=== PATIENT | male | born 1955 | race Caucasian/White ===

== ENCOUNTER 2023-06-28 14:40 | Inpatient (IN) | payer MEDICARE, BC ==
[~2023-06-28] VITALS: Ht 177.8 cm; Wt 98.3 kg
[~2023-06-28 14:40] MED LIST: ADDERALL30 MG PO; HYZAAR 50-12.1 UDTAB PO; PEPCID 20MG TAB20 MG PO; ZOCOR 20MG20 MG PO
[2023-07-18] MEDS ORDERED: Acetaminophen 500 MG TAB PO SCH (09:00)
[2023-07-18] MEDS ORDERED: Gabapentin 100 MG CAP PO SCH (09:00)
[2023-07-18] MEDS ORDERED: Celecoxib 200 MG CAP PO SCH (09:00)
[2023-07-19] VITALS (9 sets, daily range): BP systolic 126–156; BP diastolic 77–99; PULSE 65–93; TEMP 98–98.2
[2023-07-19] MEDS ORDERED: LR 1,000 ML IV SCH ×2 (09:15→15:15)
[2023-07-19] MEDS ORDERED: fentaNYL 50 MCG/ML 2 ML VIAL ONE (10:00)
[2023-07-19] MEDS ORDERED: Lidocaine PF 2% (20 MG/ML) 5 ML VIAL ONE (10:01)
[2023-07-19] MEDS ORDERED: Glycopyrrolate 0.2 MG/ML 1 ML VIAL ONE (10:02)
[2023-07-19] MEDS ORDERED: NS 10 ML IV ONE (10:02)
[2023-07-19] MEDS ORDERED: dexAMETHasone 10 MG/ML VIAL ONE (10:02)
[2023-07-19] MEDS ORDERED: Ondansetron 4 MG/2 ML VIAL ONE (10:02)
[2023-07-19] MEDS ORDERED: Rocuronium 50 MG/5 ML Multi-Dose VIAL ONE (11:18)
[2023-07-19] MEDS ORDERED: PRILOTC PO (11:31)
[2023-07-19] MEDS ORDERED: EFFEXOR XR75 MG/CAP PO (11:32)
[2023-07-19 11:34] LABS: HEMATOCRIT 44.2 % (42.0-52.0); MEAN CELL VOLUME 94 fl (80.0-100.0); MEAN CORPUSCULAR HEMOGLOBIN 32 pg (27-31); MEAN CORPUSCULAR HGB CONC 34 g/dl (33.0-37.0); MEAN PLATELET VOLUME 9.8 fl (7.4-10.4); PLATELET COUNT 194 K/mm3 (130-400); RED BLOOD COUNT 4.68 M/mm3 (4.20-5.60); REDCELL DISTRIBUTION WIDTH-CV 13.2 % (11.5-14.5)
[2023-07-19] MEDS ORDERED: NEOMYCIN S500 MG/TAB PO (11:34)
[2023-07-19] MEDS ORDERED: FLAGYL500 MG PO (11:34)
[2023-07-19] MEDS ORDERED: EFFEXOR-XR150 MG PO (11:35)
[2023-07-19 11:47] LABS: CALCIUM 9.2 mg/dL (8.4-10.2); CREATININE, serum 1.23 mg/dL (0.72-1.25); POTASSIUM 4.1 mmol/L (3.5-4.5)
[2023-07-19] MEDS ORDERED: Phenylephrine 10 MG/ML VIAL ONE (12:55)
[2023-07-19] MEDS ORDERED: Morphine 4 MG/ML VIAL IV PRN ×2 (13:00→15:15)
[2023-07-19] MEDS ORDERED: Meperidine 50 MG/ML 1 ML VIAL IV PRN (13:00)
[2023-07-19] MEDS ORDERED: Ondansetron 4 MG/2 ML VIAL IV PRN ×2 (13:00→15:15)
[2023-07-19] MEDS ORDERED: HYDROmorphone 2 MG/1 ML VIAL IV PRN (13:00)
[2023-07-19] MEDS ORDERED: Topical Skin Adhesive 1 EACH (1 ML) TOP ONE (14:01)
[2023-07-19] MEDS ORDERED: LR 1,000 ML IV ONE (14:25)
[2023-07-19] MEDS ORDERED: Naloxone 0.4 MG/ML VIAL IV PRN (15:15)
[2023-07-19] MEDS ORDERED: oxyCODONE 5 MG TAB PO PRN (15:15)
--- NOTE | 2023-07-19 17:10 | NUR ---
1036 Pt ambulatory to bay 2 with steady gait, breathing even and unlabored. Pt is alert and oriented, accompanied by his . Consents reviewed and signed by pt. IV established. LR infusing via gravity at KVO. Call light in reach. Warm blanket provided.
[2023-07-19] MEDS ORDERED: Acetaminophen 500 MG TAB PO SCH (18:00)
[2023-07-19] MEDS ORDERED: Ibuprofen 600 MG TAB PO SCH (19:01)
--- NOTE | 2023-07-19 19:15 | NUR ---
Assessment complete. A&Ox4. Denies nausea/shortness of breath. VS stable. Sitting up in recliner eating dinner. Left wrist INT with LR@75ml/HR infusing without difficulty. CUrrently on RA. Banks cath with clear yellow urine. Lap sites X5-edges well approximated-no drainage noted. Patient denies need for pain meds-states tylenol is controlling pain at this time. Plan of care discussed for this shift to include meds/pain control/fluids/calling for questions/concerns. Verbalizes understanding. Call light in reach. Will monitor.
--- NOTE | 2023-07-19 20:30 | NUR ---
Spoke with pharmacy due to warning box popping up when trying to administer celebrex that states not to give both NSAIDs consecutively. Pharmacy states clarification on order needed and may need to possibly order Motrin PRN. Held at this time as patient states he doesnt need at this time.
[2023-07-19] MEDS ORDERED: Celecoxib 200 MG CAP PO SCH (21:00)
[2023-07-20] VITALS (12 sets, daily range): BP systolic 118–160; BP diastolic 53–88; PULSE 79–100; TEMP 97.9–98.5
--- NOTE | 2023-07-20 05:22 | NUR ---
Patient has rested well over night. Tolerating PO. Adequate output. INTd this AM. Refused scheduled tylenol stating he is not in pain and does not want to take anything extra. Banks cath with clear yellow urine. SCDs off per patient request. Has ambulated. Has been up in room independently. Lap sites x5-edges well approximated-no drainage noted. VS stable-currently on RA. Denies current questions/concerns. Call light in reach. Will monitor.
--- NOTE | 2023-07-20 06:36 | NUR ---
Report given to TEJAS Iverson
[2023-07-20 07:08] LABS: BASO % 0.2 % (0.0-2.0); EOS % 0.2 % (0.0-4.0); GRAN # 10.8 K/mm3 (1.4-6.5); GRAN % 84.3 % (42.2-75.2); HEMATOCRIT 43.4 % (42.0-52.0); LYMPH # 1.1 K/mm3 (1.2-3.4); LYMPH % 8.6 % (20.0-51.0); MEAN CELL VOLUME 93 fl (80.0-100.0); MEAN CORPUSCULAR HEMOGLOBIN 32 pg (27-31); MEAN CORPUSCULAR HGB CONC 35 g/dl (33.0-37.0); MEAN PLATELET VOLUME 10.1 fl (7.4-10.4); MONO # 0.8 K/mm3 (0.1-0.6); MONO % 6.3 % (1.7-9.3); PLATELET COUNT 225 K/mm3 (130-400); RED BLOOD COUNT 4.69 M/mm3 (4.20-5.60); REDCELL DISTRIBUTION WIDTH-CV 13.1 % (11.5-14.5)
[2023-07-20 07:14] LABS: CALCIUM 9.6 mg/dL (8.4-10.2); CREATININE, serum 1.03 mg/dL (0.72-1.25); MAGNESIUM 2.3 mg/dL (1.6-2.6); PHOSPHOROUS 3.5 mg/dL (2.3-4.7); POTASSIUM 4.3 mmol/L (3.5-4.5)
--- NOTE | 2023-07-20 09:01 | NUR ---
PATIENT ALERT AND ORIENTED X4. VSS. PATIENT HERE FOR ROBOTIC RECTOPEXY. PATIENT DENIES ANY PAIN THIS MORNING, REFUSED ALL MORNING MEDS PATIENT STATES, "I DON'T NEED MEDS FOR PAIN." IV TO LEFT WRIST INT AND FLUSHES WELL. PATIENT AMBULATING HALLS. WANG TO DD WITH CASTILLO OUTPUT. NO FURTHER NEEDS. CALL LIGHT IN REACH.
--- NOTE | 2023-07-20 13:04 | NUR ---
garbage worker and Student, Valentina, met with patient to discuss discharge planning. Patient lives in [facility] with his , Brandy, P# [phone]. PCP Bernardo, pharmacy is [facility]. No issues affording medications. Insurance is Medicare A and B and BCBS. DPOA-HC is Brandy. No DME and reports to be independent with ADLS. Patient transports himself to appointmetns. No concerns about discharge and would like to return home at time of discharge. Discharge plan: Home
--- NOTE | 2023-07-20 13:57 | NUR ---
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 His surgical procedure went well and he is glad to meet the [employer] his often talks of. [employer] offered God's blessings to Raj and he shook her hand.
[2023-07-20] MEDS ORDERED: Docusate Sodium 100 MG CAP PO SCH (14:23)
[2023-07-20] MEDS ORDERED: Celecoxib 200 MG CAP PO PRN (14:25)
[2023-07-20] MEDS ORDERED: Acetaminophen 500 MG TAB PO PRN (14:30)
--- NOTE | 2023-07-20 21:00 | NUR ---
PT UP AND AROUND IN HIS ROOM. PT REPORTS HAD SM "SLIMY DARK" LIKE A STOOL. PASSING FLATUS. ENC PT NOT TO FLUSH ANY STOOLS. PT AGREED. NO NEEDS AT THIS TIME.
[2023-07-21] VITALS (12 sets, daily range): BP systolic 130–157; BP diastolic 76–97; PULSE 86–110; TEMP 97.5–98.9
--- NOTE | 2023-07-21 06:55 | NUR ---
awake sitting up on side of bed, bedside shift report received from TEJAS Ortiz
--- NOTE | 2023-07-21 07:30 | NUR ---
full assessment completed, see interventions for further info, is ordering breakfast
[2023-07-21] MEDS ORDERED: MOTRIN 600600 MG/TAB PO (07:47)
[2023-07-21] MEDS ORDERED: COLACE 100100 MG/CAP PO (07:47)
[2023-07-21 08:37] LABS: BASO % 0.4 % (0.0-2.0); EOS # 0.1 K/mm3 (0.0-0.7); EOS % 1.1 % (0.0-4.0); GRAN # 8.5 K/mm3 (1.4-6.5); HEMATOCRIT 44.9 % (42.0-52.0); HEMOGLOBIN 14.9 g/dl (13.5-18.0); LYMPH # 1.9 K/mm3 (1.2-3.4); LYMPH % 16.5 % (20.0-51.0); MEAN CELL VOLUME 97 fl (80.0-100.0); MEAN CORPUSCULAR HEMOGLOBIN 32 pg (27-31); MEAN CORPUSCULAR HGB CONC 33 g/dl (33.0-37.0); MEAN PLATELET VOLUME 9.9 fl (7.4-10.4); MONO # 0.8 K/mm3 (0.1-0.6); MONO % 6.6 % (1.7-9.3); PLATELET COUNT 212 K/mm3 (130-400); RED BLOOD COUNT 4.65 M/mm3 (4.20-5.60); REDCELL DISTRIBUTION WIDTH-CV 13.6 % (11.5-14.5)
[2023-07-21 08:54] LABS: CALCIUM 9.5 mg/dL (8.4-10.2); CREATININE, serum 1.16 mg/dL (0.72-1.25); MAGNESIUM 2.2 mg/dL (1.6-2.6); POTASSIUM 4.3 mmol/L (3.5-4.5)
--- NOTE | 2023-07-21 09:00 | NUR ---
ambulating in [place] independently, denies needs
--- NOTE | 2023-07-21 11:40 | NUR ---
continues to be independentl, ambulates in [place] and at side
--- NOTE | 2023-07-21 12:59 | NUR ---
had lunch and is still trying to have a normal bowel movement, at bedside
--- NOTE | 2023-07-21 14:48 | NUR ---
ambulating in [place], Dr Way here and visited with him
--- NOTE | 2023-07-21 16:16 | NUR ---
radiology in and abdominal xray completed
--- NOTE | 2023-07-21 18:40 | NUR ---
PATIENT SITTING ON EDGE OF BED WITH EAR BUD IN WITH TV OFF WITH NO ACUTE DISTRESS NOTED. PATIENT ON ROOM AIR. INT TO LEFT WRIST INTACT WITH NO COMPLICATIONS NOTED. LAP SITED CLEAN, DRY, AND INTACT. PATIENT CARE ASSUMED FROM PUMA AT THIS TIME. PATIENT TRAY ARRIVED. PATIENT DENIES ANY NEEDS AT THIS TIME. BED IN LOW POSITION WITH WHEELS LOCKED WITH RAILS UP X2 AND CALL LIGHT WITHIN REACH.
--- NOTE | 2023-07-21 18:50 | NUR ---
bedside shift report given to TEJAS Mejia
--- NOTE | 2023-07-21 19:10 | NUR ---
PATIENT SITTING ON EDGE OF BED WITH TV OFF WITH NO ACUTE DISTRESS NOTED. PATIENT ON ROOM AIR. ASSESSMENT COMPLETED AT THIS TIME. PATIENT TOLERATED WELL. PATIENT DENIES ANY NEEDS AT THIS TIME. VITAL SIGNS TAKEN. BED IN LOW POSITION WITH WHEELS LOCKED WITH RAILS UP X2 AND CALL LIGHT WITHIN REACH.
--- NOTE | 2023-07-21 20:03 | NUR ---
PATIENT SITTING ON EDGE OF BED LISTENING TO CELL PHONE WITH NO ACUTE DISTRESS NOTED. PATIENT ON ROOM AIR. MEDICATION ADMINISTRATION COMPLETED AT THIS TIME. INT FLUSHED. PATIENT TOLERATED WELL. PATIENT DENIES ANY NEEDS. BED IN LOW POSITION WITH WHEELS LOCKED WITH RAILS UP X2 AND CALL LIGHT WITHIN REACH.
[2023-07-22 00:07] VITALS: BP_SYST 130
[2023-07-22 03:36] VITALS: BP 145/95; PULSE 97; TEMP 97.7
[2023-07-22 04:00] VITALS: BP_SYST 145
--- NOTE | 2023-07-22 06:35 | NUR ---
ambulating in [place] and then to room, patient states he has not had a bowel movement but he is now having some rectal bleeding, he states it has happened a couple of times, it is on his robe and also on his underwear, underwear has a streak of blood on it, instructed him to call whenever this happens again, verbalizes understanding, will wait to see when Dr Way makes rounds and if needed will call and notify him of the bleeding
[2023-07-22 07:07] VITALS: BP 136/83; PULSE 100; TEMP 97.7
[2023-07-22 07:52] VITALS: BP_SYST 136
--- NOTE | 2023-07-22 08:01 | NUR ---
sitting up on side of bed visiting with his , full assessment completed, see interventions for further info, states he is only passing small amount of flatus, bowel sounds present in all 4 quads, denies any further evidence of rectal bleeding at this time, denies pain or needs
--- NOTE | 2023-07-22 09:30 | NUR ---
remains up and about in [place] and room independently with at bedside
--- NOTE | 2023-07-22 11:00 | NUR ---
pateint informed this nurse he had had a bowel movement, it was a small brown semiformed stool with scant amount blood tinge in it,
--- NOTE | 2023-07-22 12:58 | NUR ---
Dr Way in to see patient, will plan discharge
--- NOTE | 2023-07-22 13:30 | NUR ---
discharged ambulatory
== END 2023-07-22 13:30 | disposition home or self-care (01) | DRG 331 ==
LOC: INPTSU 07-19 10:25 → SURG 07-19 10:25 → SDCO 07-19 12:30 → EDSTATUS 07-19 12:30 → SURG 07-19 12:30
PROVIDERS: ADMIT Surgery
PROC: 8E0W4CZ Robotic Assisted Procedure of Trunk Region, Percutaneous Endoscopic Approach (ICD-10-PCS; 2023-07-19)
PROC: 0DQP4ZZ Repair Rectum, Percutaneous Endoscopic Approach (ICD-10-PCS; principal; 2023-07-19 12:30)
DX: K62.3 Rectal prolapse (principal)
CPT/HCPCS: A4314; A9284; J0690; J1100; J1170; J1650; J2371; J2405; J2704; J3010; J7120